=== PATIENT | male | born 1965 | race African-American/Black ===

== ENCOUNTER 2024-08-21 22:02 | Emergency (ER) | payer SELFPAY ==
[~2024-08-21] VITALS: Ht 177.8 cm; Wt 120.0 kg
[2024-08-21 22:16] VITALS: TEMP 36.4; O2SAT 99
[2024-08-21 23:41] LABS: BASOPHILS % 0.5 % (0.0-2.0); EOSINOPHILS % 1.5 % (0.0-5.0); HEMATOCRIT. 43.1 % (42.0-52.0); HEMOGLOBIN. 13.9 g/dL (14.0-18.0); MEAN CORPUSCULAR HEMOGLOBIN 29.8 pg (28.0-32.0); MEAN CORPUSCULAR HGB CONC 32.3 g/dL (31.0-37.0); MEAN CORPUSCULAR VOLUME 92.3 fL (80.0-94.0); MEAN PLATELET VOLUME 6.9 fl (7.4-10.4); PLATELET 361 x1000/uL (130-400); RED BLOOD CELL COUNT 4.67 mill/uL (4.7-6.1); WHITE BLOOD COUNT 8.4 x1000/uL (4.5-11.0)
[2024-08-21 23:50] LABS: CALCIUM 9.7 mg/dL (8.7-10.4)
[2024-08-21 23:54] LABS: CREATININE 1.5 mg/dL (0.6-1.3)
[2024-08-22 02:00] LABS: DIFFERENTIAL COMMENT 1
[2024-08-22 02:55] VITALS: BP 147/87; PULSE 100; RESP 18; O2SAT 98
== END 2024-08-22 05:15 | disposition left against medical advice (07) ==
LOC: ER 22:02 → EDBEDREQTM 08-22 03:34 → EDBEDREQSVC 08-22 03:34 → EDBEDREQ 08-22 03:34 → ER 08-22 05:15
DX: G93.40 Encephalopathy, unspecified (principal); T51.0X1A Toxic effect of ethanol, accidental (unintentional), initial encounter; R51.9 Headache, unspecified; Y92.9 Unspecified place or not applicable
CPT/HCPCS: 36415; 80048; 80320; 82962; 85025; 99284; G0480